=== PATIENT | female | born 1990 | race African-American/Black ===

== ENCOUNTER 2018-05-29 11:12 | Emergency (ER) | payer MEDICAID ==
[~2018-05-29] VITALS: Ht 160 cm; Wt 63.5 kg
[2018-05-29 11:56] VITALS: BP_SYST 150
[2018-05-29] MEDS ORDERED: cefTRIAXone 1 GM in LIDOCAINE 1%, 20 ML MDV 2.1 ML IM ONE (14:00)
[2018-05-29] MEDS ORDERED: ACETAMINOPHEN 500 MG TABLET PO ONE (14:00)
[2018-05-29] MEDS ORDERED: LIDOCAINE 1% 10 MG/ML, 20 ML MDV INJ ONE (14:00)
[2018-05-29] MEDS ORDERED: LIDOCAINE 1%, 20 ML MDV 20 ML ONE (16:14)
[2018-05-29] MEDS ORDERED: cefTRIAXone 1 GM VIAL ONE (16:28)
[2018-05-29] MEDS ORDERED: BACITRACIN 1 GM OINT TP ONE ×2 (16:28→16:30)
[2018-05-29] MEDS ORDERED: ACETAMINOPHEN 500 MG TABLET ONE (16:28)
[2018-05-29 17:30] VITALS: BP_SYST 148
== END 2018-05-29 17:30 | disposition home or self-care (01) ==
LOC: SED 11:12
DX: L02.511 Cutaneous abscess of right hand (principal); K04.7 Periapical abscess without sinus; R03.0 Elevated blood-pressure reading, without diagnosis of hypertension; F17.210 Nicotine dependence, cigarettes, uncomplicated; Z71.6 Tobacco abuse counseling
CPT/HCPCS: 10060; 96372; 99283; J0696; J2001